=== PATIENT | female | born 1990 | race Asian ===

== ENCOUNTER → 2020-12-12 11:43 | Outpatient (CLI) | payer OTHER, SELFPAY ==
[2020-12-12 12:13] LABS: Add Manual Diff / Slide Review NO; Basophils Absolute Auto 0 /uL (0-100); Basophils Percent Auto 0.5 % (0-2); Eosinophils Absolute Auto 500 /uL (0-450); Hematocrit 37.3 % (36-46); Hemoglobin 12.5 g/dL (12.0-16.0); Lymphocytes Absolute Auto 2800 /uL (1100-4500); Lymphocytes Percent Auto 26.9 % (25-40); Mean Corpuscular HGB Conc 33.4 % (30-36); Mean Corpuscular Hemoglobin 28.9 PG (26-34); Mean Corpuscular Volume 86.3 fL (80-100); Monocytes Absolute Auto 700 /uL (0-900); Monocytes Percent Auto 6.4 % (3-14); Neutrophils Absolute Auto 6500 /uL (1500-7000); Neutrophils Percent Auto 61.2 % (50-75); Platelet Count 281 X10^3/uL (150-400); Red Blood Cell Count 4.32 X10^6/uL (4.0-5.2); Red Cell Distribution Width 12.5 % (11.6-14.8); White Blood Cell Count 10.6 X10^3/uL (4.5-11.0)
[2020-12-12 12:56] LABS: Appearance Urine UA CLEAR; Bilirubin Urine UA NEGATIVE (NEGATIVE); Color Urine UA YELLOW; Glucose Urine UA NEGATIVE (Negative); Ketones Urine UA NEGATIVE (NEGATIVE); Leukocyte Esterase Urine UA NEGATIVE (NEGATIVE); Nitrite Urine UA NEGATIVE (Negative); Occult Blood Urine UA NEGATIVE (Negative); Protein Urine UA NEGATIVE (Negative); Urobilinogen Urine UA 0.2 E.U./dL (0.2)
[2020-12-12 15:55] LABS: Hepatitis B Surface Antigen NEGATIVE s/c (NEGATIVE); Rubella Antibody IgG 32.1 IU/mL (>15)
[2020-12-12 16:10] LABS: HIV 1 & 2 Ab/Ag 4th Gen Combo NEGATIVE (NEGATIVE); Hep C Virus Ab w/Reflex Quant NEGATIVE s/c (NEGATIVE)
[2020-12-13 09:43] LABS: RPR Screen Non Reactive (Non Reactive); Varicella IgG Antibody <135 index (Immune >165)
== END ==
PROVIDERS: Family Provider Specialist; PCP Specialist; Referring Provider Specialist; Visit Provider Specialist
DX: Z34.81 Encounter for supervision of other normal pregnancy, first trimester (principal)
CPT/HCPCS: 36415; 80055; 81003; 86787; 86803; 86850; 86900; 86901; 87086; 87389

== ENCOUNTER → 2021-02-28 12:41 | Outpatient (CLI) | payer OTHER, SELFPAY ==
--- NOTE | 2021-02-28 12:42 | DI.US.S_ITS ---
PROCEDURE: US OB >= 14 WEEKS FETUS INDICATIONS: ANATOMY OUTSIDE/PRIOR DATING DATA: Last menstrual period (LMP): Unknown LMP-based estimated date of delivery (DOMONIQUE): Unknown First dating scan (date and location): 12/12/2020. Estimated date of delivery (DOMONIQUE) from first dating scan: 07/16/2021. TECHNIQUE: Real-time scanning was performed of the fetus, with image documentation and biometric measurements. COMPARISON: [facility], , OB >= 14 WEEKS FETUS, 02/05/2021, 12:02. FINDINGS: General: A single living intrauterine gestation is present. Presentation: Variable. Placenta: Placental position is anterior, without previa. Amniotic fluid index: 18.1 cm, normal range is 5-24 cm. heart rate: 126 beats per minute. Maternal cervical canal: 3.2 cm long. Normal lower limit is 2.5 cm. biometrics: Biparietal diameter: 4.9 cm, 21 weeks 0 days Head circumference: 18.1 cm, 20 weeks 4 days Abdominal circumference: 15.7 cm, 20 weeks 6 days Femur length: 3.2 cm, 20 weeks 0 days Estimated gestational age from initial scan: 20 weeks 2 days Composite gestational age from present scan: 20 weeks 4 days Estimated weight and percentile: 358 g, 58th percentile Measurement variability for biometric dating: +/- 7 days from 14 weeks to 15 weeks 6 days gestation, +/- 10 days from 16 weeks to 21 weeks 6 days gestation, +/- 2 weeks from 22 weeks to 27 weeks 6 days gestation, +/- 3 weeks for 28 weeks gestation or later. weight reference: 4500 g or EFW >90/95% is considered macrosomia or large for gestational age. EFW <10% is small for gestational age. EFW 5% or less is considered intra-uterine growth restriction. Anatomic survey: Neuro: Ventricles are non-dilated at less than 10 mm. Cisterna magna is normal at 3-11 mm. Cerebellum is normal in size and morphology. Nuchal skin fold: Normal at less than 6 mm between 14-21 weeks gestational age. Face: Nose and lips, facial profile are normal. Spine: No evidence for spina bifida. Heart: 4-chambered heart is present, with normal ventricular outflow tracts. Diaphragm: Diaphragm is intact. Stomach: Left-sided stomach is present. Kidneys: No hydronephrosis. Normal is less than 5 mm in 2nd trimester, less than 7 mm in 3rd trimester. Cord: 3-vessel cord has orthotopic insertion. Bladder: Normal in size. Extremities: All 4 extremities identified. IMPRESSION: 1. Walter living intrauterine at 20 weeks 4 days based on today's ultrasound. This is concordant with the prior ultrasound dating. There is expected interval growth. EFW 58th percentile. 2. Normal placenta and amniotic fluid. 3. Normal and complete anatomic survey. Dictated by: Michael Patel M.D. on 02/28/2021 at 15:03 Approved by: Michael Patel M.D. on 02/28/2021 at 15:08
== END ==
PROVIDERS: Family Provider Specialist; Referring Provider Specialist; Visit Provider Specialist
DX: Z34.82 Encounter for supervision of other normal pregnancy, second trimester (principal); Z3A.20 20 weeks gestation of pregnancy
CPT/HCPCS: 76811

== ENCOUNTER → 2021-04-03 09:16 | Outpatient (CLI) | payer OTHER, SELFPAY ==
[2021-04-03 11:03] LABS: Hematocrit 31.8 % (36-46)
[2021-04-03 11:22] LABS: GTT (PREG) 1 Hour PP 50gm Dose 91 mg/dL (76-139)
== END ==
PROVIDERS: Family Provider Specialist; Referring Provider Specialist; Visit Provider Specialist
DX: Z34.82 Encounter for supervision of other normal pregnancy, second trimester (principal)
CPT/HCPCS: 36415; 82950; 85014; 85018

== ENCOUNTER → 2021-07-04 16:01 | Outpatient (CLI) | payer OTHER, SELFPAY ==
[2021-07-06 15:09] LABS: Strep Grp B PCR NEG for Grp B Strep
== END ==
PROVIDERS: Family Provider Specialist; Visit Provider Specialist
DX: Z34.83 Encounter for supervision of other normal pregnancy, third trimester (principal); Z3A.38 38 weeks gestation of pregnancy
CPT/HCPCS: 87653

== ENCOUNTER 2021-07-16 01:18 | Inpatient (IN) | payer OTHER, SELFPAY ==
[2021-07-16 02:30] LABS: Add Manual Diff / Slide Review NO; Basophils Absolute Auto 100 /uL (0-100); Basophils Percent Auto 0.7 % (0-2); Eosinophils Absolute Auto 400 /uL (0-450); Hematocrit 37.8 % (36-46); Hemoglobin 12.7 g/dL (12.0-16.0); Lymphocytes Absolute Auto 2800 /uL (1100-4500); Lymphocytes Percent Auto 21.4 % (25-40); Mean Corpuscular HGB Conc 33.5 % (30-36); Mean Corpuscular Hemoglobin 29.5 PG (26-34); Mean Corpuscular Volume 87.9 fL (80-100); Monocytes Absolute Auto 1200 /uL (0-900); Neutrophils Absolute Auto 8500 /uL (1500-7000); Neutrophils Percent Auto 65.9 % (50-75); Platelet Count 246 X10^3/uL (150-400); Red Cell Distribution Width 13.4 % (11.6-14.8); White Blood Cell Count 12.9 X10^3/uL (4.5-11.0)
[2021-07-16 03:23] VITALS: BP 108/59
[2021-07-16 03:47] LABS: COVID19 -Nasal RAPID Negative (Negative)
[2021-07-16] MEDS: LACTATED RINGERS 1,000 ML 100 ML IV (05:15)
--- NOTE | 2021-07-16 07:33 | P.HPOB_ITS ---
OB HPI Date/Time Date of admission: 07/16/21 Date Patient Seen: 07/16/21 Time Patient Seen: 07:34 History of Present Condition Chief complaint: OBS : 2 Para: 1 Estimated Date of Delivery: 07/14/21 Estimated Gestational Age (weeks): 40 Narrative: Kateryna Meredith is a 30 year old female admitted in active labor History of Present care: good care, initiated at week # (9), number of visits (12) and pounds weight gain (39) Dating criteria: LMP confirmed by 1st trimester US Ultrasounds: normal mid trimester US Obstetrical complications: none Medical complications: none Preadmission Labs Blood type: A (+) positive -: Antibody screen: negative, GBS status: negative, HBsAG: negative, HIV: negative and RPR/VDLR: negative -: Chlamydia screen: not detected and Gonorrhea screen: not detected -: Rubella: immune and Varicella: not immune HCAB: negative 1 hr GTT: 91 Prior (ies) History: 12/30/2016 38 weeks 4 days 7 lb 1 oz female Evaluation Evaluation Baseline heart rate: 130 Variability: Moderate (11-25) monitor accelerations: Present Monitor Decelerations: Late Contraction Frequency (minutes): 2 Uterine Contraction Intensity: Strong/Firm Status: Category ll Dilation (cm): 9 Effacement (%): 100 station: -1 [facility] Medical History (Updated 06/27/21 @ 16:14 by Bird Bell MD) GERD (gastroesophageal reflux disease) (~01/2020) Vaginal delivery (~12/30/16) Surgical History (Updated 12/11/20 @ 12:23 by Michelle Mcclendon RN) [place] teeth extracted Family History (Updated 12/11/20 @ 12:28 by Michelle Mcclendon RN) Mother Breast cancer Father Diabetes mellitus Grandmother Unknown family medical history Grandfather Unknown family medical history Grandmother Unknown family medical history Grandfather Unknown family medical history Social History marital status: number of children: 1 household members: spouse and children lives independently: Yes caregiver/support person: No housing: house pets and animals: Yes (1 puppy: they are aware ) education level: college (2 years: [employer]) 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 ) current occupational exposures/hazards: No special isaiah needs: No seatbelt use: always working smoke detector in home: Yes fire extinguisher in home: No carbon monox detector in home: Yes firearms in home: No do you feel safe at home: Yes Smoking Status: Never smoker second hand exposure: No alcohol intake: never substance use type: does not use during the past year weight has: remained stable well-balanced diet: daily or most days daily servings fruits/ve-4 (2 cups/day. ) caffeine: No Type(s) of exercise: yoga (Online. ) frequency: daily duration: 30-45 minutes/day Meds Home Medications and Allergies Home Medications Medication Instructions Recorded Confirmed Type prenat.vits,joaquin,dsb-gbmo-gvsnc 1 tab PO DAILY 12/11/20 07/11/21 History albuterol sulfate 90 mcg/actuation 2 puff INHALATION Q6H PRN #6.7 g 05/30/21 07/16/21 Rx aerosol inhaler fluticasone propionate 100 1 inh INHALATION BID #60 ea 06/17/21 07/11/21 Rx mcg/actuation blister powder for inhalation (Flovent Diskus) Allergies Allergy/AdvReac Type Severity Reaction Status Date / Time No Known Drug Allergies Allergy Verified 07/11/21 16:03 Review of Systems Review of Systems Narrative: Good movement, no leakage of fluid, no headaches, scotomata, epigastric pain. OB Exam Narrative Exam Narrative: HEENT exam within normal limits. Lungs are clear to auscultation percussion. Heart is regular rate and rhythm no S3-S4 murmurs. Abdomen is gravid. Extremities without edema and nontender Objective Labs Result Diagrams: 07/16/21 02:15 Labs: Laboratory Results - last 24 hr 07/16/21 07/16/21 07/16/21 02:15 02:15 03:47 WBC 12.9 H RBC 4.30 Hgb 12.7 Hct 37.8 MCV 87.9 MCH 29.5 MCHC 33.5 RDW 13.4 Plt Count 246 Neut % (Auto) 65.9 Lymph % (Auto) 21.4 L [place] % (Auto) 9.0 Eos % (Auto) 3.0 Baso % (Auto) 0.7 Neut # (Auto) 8500 H Lymph # (Auto) 2800 [place] # (Auto) 1200 H Eos # (Auto) 400 Baso # (Auto) 100 SARS-CoV-2 (PCR) Negative Blood Type A Positive Antibody Screen Negative Assessment and Plan Assessment and Plan Assessment and Plan narrative: 40 week gestation in active labor. Anticipate vaginal delivery.
--- NOTE | 2021-07-16 09:12 | PM.OBPRVD ---
Labor & Delivery Delivery date: 07/16/21 Intrapartal Events: None Delivery monitor: external FHT and external uterine Route of delivery: L&D Laceration Description: Perineal - 1st Degree Delivery repair: chromic ( 4 0) Estimated blood loss (mL): 200 Anesthesia Type: Local ( lidocaine) Narrative: Patient arrived on Labor and delivery in active labor. She progressed normally. She was having some intermittent late decelerations just prior to becoming complete. She was AROMed for clear fluid after which had significant variables. second-stage of labor was 7 minutes. She delivered spontaneously, over an intact perineum. The viable female infant was placed on maternal abdomen. After the cord stopped pulsating the cord was clamped, cut, and cord bloods obtained. The placenta delivered spontaneously, intact, with 3 vessels. There were no cervical or vaginal tears. A small first-degree perineal tear was repaired with 3-0 chromic suture after injecting with approximately 10 cc of 1% lidocaine. [place] Baby 1: Infant gender: Female Presentation: vertex Position: Right Occiput Anterior Placenta delivery description: Spontaneous Cord Vessel Description: 3 Vessels score (1 min): 9 score (5 min): 9 weight: 9 lb Plan for aftercare: Routine care
[2021-07-16] MEDS: IBUPROFEN 600 MG TABLET PO ×3 (10:15→21:45)
[2021-07-16] MEDS: ACETAMINOPHEN 325 MG TABLET 650 MG PO ×3 (10:15→21:45)
[2021-07-16] MEDS: DERMOPLAST SPRAY 20% 60 ML 1 SPRAY TOP (16:05)
[2021-07-17] MEDS: IBUPROFEN 600 MG TABLET PO ×2 (03:46→11:39)
[2021-07-17] MEDS: ACETAMINOPHEN 325 MG TABLET 650 MG PO ×2 (03:46→11:39)
[2021-07-17 05:25] LABS: Add Manual Diff / Slide Review NO; Basophils Absolute Auto 0 /uL (0-100); Basophils Percent Auto 0.3 % (0-2); Eosinophils Absolute Auto 300 /uL (0-450); Eosinophils Percent Auto 2.5 % (2-4); Hematocrit 32.5 % (36-46); Lymphocytes Absolute Auto 3300 /uL (1100-4500); Lymphocytes Percent Auto 23.4 % (25-40); Mean Corpuscular HGB Conc 33.8 % (30-36); Mean Corpuscular Volume 88.8 fL (80-100); Monocytes Absolute Auto 1400 /uL (0-900); Monocytes Percent Auto 10.1 % (3-14); Neutrophils Absolute Auto 8900 /uL (1500-7000); Neutrophils Percent Auto 63.7 % (50-75); Platelet Count 215 X10^3/uL (150-400); Red Blood Cell Count 3.66 X10^6/uL (4.0-5.2); Red Cell Distribution Width 13.7 % (11.6-14.8); White Blood Cell Count 13.9 X10^3/uL (4.5-11.0)
[2021-07-17] MEDS: OXYCODONE/ACETAMINOPHEN 5/325 TABLET 1 TAB PO (06:46)
--- NOTE | 2021-07-17 08:19 | PM.OBDS.1 ---
Discharge Providers Provider Date of admission: 07/16/21 01:18 Discharge Date: 07/17/21 Primary care physician: Doctor Candelaria MD Consults: 07/17/21 09:06 Consult to Guidance Secretary Routine Comment: Discharge provider: Jacqueline Lisa MD Summary Hospital Course Date Patient Seen: 07/17/21 Time Patient Seen: 08:19 Diagnoses: Vaginal delivery, repair first-degree perineal tear Hospital Course: Patient arrived on Labor and delivery in active labor. She had a spontaneous vaginal delivery of a viable female weighing 9 lb with a repair of a first-degree perineal tear. She is breast-feeding without difficulty. Urinating and ambulating well. She is having significant cramping so to requested and narcotic pain medicine. Peripartum Data Infant Delivery Method: Natural Vaginal Laceration Description: Perineal - 1st Degree Procedures: Spontaneous vaginal delivery, repair of first-degree tear complications: none 1: Gender: Female Disposition of : home Discharge Diagnosis (1) Vaginal delivery: Status: Acute Status at Discharge Cognitive/behavioral status at discharge: oriented Functional status at discharge: independent ambulation Overall status at discharge: patient is progressing back to baseline Time Spent with Patient Time attestation: Total time spent providing and/or coordinating discharge services: Time spent: Less than 30 minutes Objective Labs Result Diagrams: 07/17/21 05:12 Labs: Laboratory Results - last 24 hr 07/17/21 05:12 WBC 13.9 H RBC 3.66 L Hgb 11.0 L Hct 32.5 L MCV 88.8 MCH 30.0 MCHC 33.8 RDW 13.7 Plt Count 215 Neut % (Auto) 63.7 Lymph % (Auto) 23.4 L [place] % (Auto) 10.1 Eos % (Auto) 2.5 Baso % (Auto) 0.3 Neut # (Auto) 8900 H Lymph # (Auto) 3300 [place] # (Auto) 1400 H Eos # (Auto) 300 Baso # (Auto) 0 Exam Vital Signs (past 8 hours): Blood pressure 104/66, pulse 71, temperature 98? Narrative Exam Narrative: Abdomen is soft, nontender. Uterus is firm, at U, nontender. Mild lochia. Extremities without edema and nontender. Blood type is A positive, rubella immune, she received Tdap in the 3rd trimester. Discharge Plan Discharge Plan Patient Disposition: Home Discharge orders & Medications Prescriptions: New oxycodone-acetaminophen 5-325 mg Tablet 1 tab PO Q4HR PRN (Reason: Pain, Moderate (4-6)) Qty: 10 0RF ibuprofen 600 mg Tablet 600 mg PO Q6HR PRN (Reason: Pain, Mild (1-3)) Qty: 20 0RF Continued Flovent Diskus 100 mcg/actuation blister with device 1 inh inhalation BID Qty: 60 0RF Rx Instructions: Has not used medication for a few weels prenat.vits,joaquin,[id number] Tablet 1 tab PO DAILY 0RF albuterol sulfate 90 mcg/actuation HFA aerosol inhaler 2 puff inhalation Q6H PRN (Reason: shortness of breath or wheezing) Qty: 6.7 2RF Rx Instructions: Has not used med for a few weeks. Follow up/Referrals: Jacqueline Lisa MD [Family Provider] - 1 Month Doctor Gaona MD [Primary Care Provider] - Diet/Activity/Treatments Diet: Regular Activity: Nothing in vagina for 6 weeks Skin/Wound/Dressing Care Report to your healthcare provider any signs of infection, such as:: chills, fever and increased pain Discharge Data Primary Care Provider: Doctor Candelaria
== END 2021-07-17 13:00 | disposition home or self-care (01) | DRG 807 ==
PROVIDERS: Admitting Provider Specialist; Family Provider Specialist; Referring Provider Specialist; Visit Provider Specialist
DX: O70.0 First degree perineal laceration during delivery (principal); Z37.0 Single live birth; Z3A.40 40 weeks gestation of pregnancy
CPT/HCPCS: 36415; 59050; 59400; 85025; 86850; 86900; 86901; 87635; C9803; G0379

== ENCOUNTER 2021-09-28 08:12 | Emergency (ER) | payer OTHER, SELFPAY ==
[2021-09-28 08:17] VITALS: BP 125/82; PULSE 72; PULSE 77; RESP 16; TEMP 36.8; O2SAT 100; O2SAT 99; BMI 28.0
--- NOTE | 2021-09-28 08:21 | ED.ABDPAIN ---
HPI - Abdominal Pain General Chief Complaint: Abdominal Pain Stated Complaint: abd pain Time Seen by Provider: 09/28/21 08:21 Source: patient Mode of arrival: Ambulatory Limitations: no limitations History of Present Illness HPI narrative: This is a 31-year-old female with history of asthma, patient states she developed epigastric pain this morning it radiates towards her back about 2:00 a.m. which has been persistent. It has been constant without any waxing or waning, she has had nausea and vomiting this morning. No fevers or chills. Denies any radiation elsewhere. Patient denies any diarrhea constipation, no black or bloody stools. No dysuria, urgency or frequency. No vaginal bleeding or discharge. She has had 1 similar episode about 2 weeks ago. She uses inhaler but no other daily medications. No prior surgeries. No allergies to medications. Denies tobacco, alcohol or illicit. She is accompanied by her today. PCP is in [place]. Related Data Home Medications Medication Instructions Recorded Confirmed prenat.vits,joaquin,rou-hqgo-[id number] 1 tab PO DAILY 12/11/20 07/17/21 Previous Rx's Medication Instructions Recorded albuterol sulfate 90 mcg/actuation 2 puff inhalation Q6H PRN 05/30/21 aerosol inhaler shortness of breath or wheezing #6.7 grams fluticasone propionate 100 1 inh inhalation BID #60 ea 06/17/21 mcg/actuation blister powder for inhalation (Flovent Diskus) ibuprofen 600 mg tablet 600 mg PO Q6HR PRN Pain, Mild 07/17/21 (1-3) #20 tabs medroxyprogesterone 150 mg/mL 150 mg IM [id number] #1 mL 08/14/21 intramuscular suspension meloxicam 7.5 mg tablet 7.5 mg PO BID PRN pain #20 tabs 09/28/21 Allergies Allergy/AdvReac Type Severity Reaction Status Date / Time No Known Drug Allergies Allergy Verified 07/11/21 16:03 Review of Systems Review of Systems ROS Unobtainable: All systems reviewed & are unremarkable except as noted in HPI and below Patient History Medical History GERD (gastroesophageal reflux disease) (~01/2020) Vaginal delivery (~12/30/16) Surgical History Peggs teeth extracted Family History Mother Breast cancer Father Diabetes mellitus Grandmother Unknown family medical history Grandfather Unknown family medical history Grandmother Unknown family medical history Grandfather Unknown family medical history Social History marital status: number of children: 1 household members: spouse and children lives independently: Yes caregiver/support person: No housing: house pets and animals: Yes (1 puppy: they are aware ) education level: college (2 years: [employer]) 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 ) current occupational exposures/hazards: No special isaiah needs: No seatbelt use: always working smoke detector in home: Yes fire extinguisher in home: No carbon monox detector in home: Yes firearms in home: No do you feel safe at home: Yes Smoking Status: Never smoker second hand exposure: No alcohol intake: never substance use type: does not use during the past year weight has: remained stable well-balanced diet: daily or most days daily servings fruits/ve-4 (2 cups/day. ) caffeine: No Type(s) of exercise: yoga (Online. ) frequency: daily duration: 30-45 minutes/day Smoking Status: Never smoker Exam Narrative Exam Narrative: GENERAL: Alert and oriented x three, female in mild distress. HEENT: Head normocephalic, atraumatic, EOMI, pupils reactive, face symmetric, moist mucous membranes NECK: Supple, full range of motion CARDIOVASCULAR: Regular rate and rhythm without murmurs, rubs or gallops. RESPIRATORY: Breath sounds equal bilaterally, no wheezes rales or rhonchi. ABDOMEN: Soft, mild right upper quadrant tenderness, moderate epigastric tenderness. Normoactive bowel sounds all 4 quadrants. No guarding or rebound, rigidity, no mass. Nondistended. No pulsatile mass or bruit. : No CVA tenderness EXTREMITIES: Normal range of motion, no clubbing or edema. Neurovascularly intact NEUROLOGICAL: Cranial nerves II through XII grossly intact. Moving all extremities SKIN: Warm, dry, no petechiae, no rashes or lesions. Initial Vital Signs Initial Vital Signs: Vital Signs Temperature 98.2 F 09/28/21 08:17 Pulse Rate 77 09/28/21 08:17 Respiratory Rate 16 09/28/21 08:17 Blood Pressure 125/82 09/28/21 08:17 Pulse Oximetry 99 09/28/21 08:17 Oxygen Delivery Method 09/28/21 08:17 Course Orders Ordered: Discontinued Medications Acetaminophen (Acetaminophen 325 Mg Tablet) 975 mg PO NOW ONE Stop: 09/28/21 09:53 Last Admin: 09/28/21 10:00 Dose: 975 mg Documented By: JANA Al Hydrox/Mg Hydrox/Simethicone 20 ml/ Lidocaine HCl 15 ml 0 ml PO NOW ONE Stop: 09/28/21 08:29 Last Admin: 09/28/21 08:39 Dose: 35 ml Documented By: EDUAR Ketorolac Tromethamine (Ketorolac 30 Mg/Ml Vial) 30 mg IV NOW ONE Stop: 09/28/21 09:10 Last Admin: 09/28/21 09:16 Dose: 30 mg Documented By: EDUAR Pantoprazole Sodium (Pantoprazole 40 Mg Vial) 40 mg IV NOW ONE Stop: 09/28/21 08:29 Last Admin: 09/28/21 08:39 Dose: 40 mg Documented By: EDUAR Reevaluation(s) Reevaluation #1: Patient pain not improved after GI cocktail. Plan for toradol IV. Time: 09:10 Reevaluation #2: Recheck patient's pain is improved to 2/10 she would like a little distal dose of Tylenol. She would like to return home at this point and defers surgical intervention today. We did discuss return precautions. Contact follow-up with General surgery that she will likely have persistent symptoms and if rapidly worsening to return to the ED Time: 09:50 Consultations Consultation #1: Dr. Doss, general surgery. Reviewed patient has stone in the neck of the gallbladder he is willing to take patient to the OR today if they would like to if her pain is controlled and I prefer follow-up outpatient will defer to patient choice. Time: 09:44 Vital Signs Vital signs: Vital Signs - 8 hr 09/28/21 08:17 09/28/21 08:17 09/28/21 08:17 Temperature 98.2 F Pulse Rate 77 72 Respiratory Rate 16 Blood Pressure 125/82 125/82 Pulse Oximetry 99 100 Oxygen Delivery Method Room Air 09/28/21 08:30 09/28/21 08:39 09/28/21 08:39 Temperature Pulse Rate 67 75 Respiratory Rate Blood Pressure 115/77 Pulse Oximetry 99 100 Oxygen Delivery Method MDM - Abdominal Pain Lab Data Result diagrams: 09/28/21 08:27 09/28/21 08:27 Labs: Lab Results 09/28/21 09/28/21 09/28/21 Range/Units 08:27 08:27 08:52 WBC 7.9 (4.5-11.0) X10^3/uL RBC 4.51 (4.0-5.2) X10^6/uL Hgb 13.0 (12.0-16.0) g/dL Hct 38.3 (36-46) % MCV 85.0 (80-100) fL MCH 28.8 (26-34) PG MCHC 33.9 (30-36) % RDW 11.9 (11.6-14.8) % Plt Count 291 (150-400) X10^3/uL Neut % (Auto) 59.0 (50-75) % Lymph % (Auto) 29.0 (25-40) % [place] % (Auto) 6.3 (3-14) % Eos % (Auto) 5.0 H (2-4) % Baso % (Auto) 0.7 (0-2) % Neut # (Auto) 4600 (9016-6881) /uL Lymph # (Auto) 2300 (7944-0892) /uL [place] # (Auto) 500 (0-900) /uL Eos # (Auto) 400 (0-450) /uL Baso # (Auto) 100 (0-100) /uL Sodium 136 L (137-145) mmol/L Potassium 3.9 (3.4-5.1) mmol/L Chloride 105 (98-107) mmol/L Carbon Dioxide 23 (22-32) mmol/L BUN 12 (7-17) mg/dL Creatinine 0.61 (0.52-1.04) mg/dL Estimated GFR > 60 (>60) mL/min BUN/Creatinine Ratio 19.7 (6-22) Glucose 120 H (70-100) mg/dL Calcium 9.2 (8.4-10.2) mg/dL Total Bilirubin 0.5 (0.2-1.3) mg/dL AST 25 (14-36) IU/L ALT 20 (<35) IU/L Alkaline Phosphatase 63 (38-126) U/L Total Protein 8.8 H (6.3-8.2) g/dL Albumin 4.8 (3.5-5.0) g/dL Globulin 4.0 (1.7-4.1) g/dL Albumin/Globulin Ratio 1.2 (1.0-2.8) Lipase 116 (23-300) U/L Urine RBC None seen (0-5/HPF) Urine WBC 1-5/hpf (0-5/HPF) Ur Squamous Epith Cells 1-5 /hpf (0-5/HPF) Urine Bacteria None seen (None) Urine Mucus 1+ H (Negative) Ur Culture Indicated? Cult not indicated Point of care testing: Point of Care Testing Test Results Negative Urine Dip Bedside Urine Glucose Negative Bedside Urine Bilirubin - Negative Bedside Urine Ketone - Negative Urine Specific [place] 1.030 Bedside Urine Occult Blood - Negative Bedside Urine pH 6.0 Bedside Urine Protein + 30 Bedside Urine Urobilinogen 0.2 Bedside Urine Nitrite - Negative Bedside Urine Leukocytes - Negative Esterase Imaging Data US - abdomen: Radiologist's Impression: prelim report-stone in neck of gallbladder. No thickening or fluid appreciated. [address] [address]RS[place] ReportSigned Patient: Kateryna MeredithR#: [id number]: 1990Acct:[id number]/Sex: 31 / FDate of Service: 09/28/21Loc: EDAccession Number: [id number]? ? Procedure: XR acute abdomen series Ordering Provider: Lainey Avalos D.O. PROCEDURE:? XR ACUTE ABDOMEN SERIES ? INDICATIONS:? epigastric pain ? TECHNIQUE:? One view chest and two views of the abdomen were acquired.? ? COMPARISON:? None. ? FINDINGS:? ? Surgical changes and devices:? None.? ? Chest:? Lungs are clear.? Heart size is normal.? No pleural effusions.? No pneumoperitoneum.? ? Abdomen:? Bowel gas pattern is normal.? No suspicious calcifications.? Visualized solid organ contours appear normal.? ? Bones:? No suspicious bony lesions.? ? ? IMPRESSION:? Unremarkable plain film study. ? A nonobstructive bowel gas pattern is seen. ? ? Dictated by: Remigio Sanchez M.D. on 09/28/2021 at 8:00? ?? Approved by: Remigio Sanchez M.D. on 09/28/2021 at 8:01?? Abdominal x-ray: Radiologist's Impression: Close Chest/Abdomen X-ray (Signed) Remigio Sanchez - 09/28/21 Launch?[address] [address] XRay Report Signed Patient: Kateryna Meredith MR#: [id number] : 1990 Acct:[id number] Age/Sex: 31 / F Date of Service: 09/28/21 Loc: ED Accession Number: [id number] ?? Procedure: XR acute abdomen series Ordering Provider: Lainey Avalos D.O. PROCEDURE:? XR ACUTE ABDOMEN SERIES ? INDICATIONS:? epigastric pain ? TECHNIQUE:? One view chest and two views of the abdomen were acquired.? ? COMPARISON:? None. ? FINDINGS:? ? Surgical changes and devices:? None.? ? Chest:? Lungs are clear.? Heart size is normal.? No pleural effusions.? No pneumoperitoneum.? ? Abdomen:? Bowel gas pattern is normal.? No suspicious calcifications.? Visualized solid organ contours appear normal.? ? Bones:? No suspicious bony lesions.? ? ? IMPRESSION:? Unremarkable plain film study. ? A nonobstructive bowel gas pattern is seen. ? ? Dictated by: Remigio Sanchez M.D. on 09/28/2021 at 8:00 ? ? Approved by: Remigio Sanchez M.D. on 09/28/2021 at 8:01?? ECG Data Attestation: I personally reviewed and interpreted this ECG as follows: Prior ECG tracings: not available for review Interpretation: Reviewed normal sinus rhythm rate of 68 TX 176 QRS 84 QT 425. Patient does not show any acute EKG changes. No priors for comparison MDM Narrative Medical decision making narrative: This is an 31-year-old female with history of asthma with 2 episodes of epigastric pain and some moderate epigastric pain on palpation with right upper quadrant tenderness with nausea and vomiting that came on abruptly overnight. EKG was obtained to evaluate for cardiac cause but suspect intra-abdominal possibly GERD, pancreatitis, gallbladder dysfunction, ulcer. US shows stone in neck of gallbladder. No lab abnormalities, urine and are negative. Patient has a stone in the gallbladder neck. Pain was improved with Toradol. Discussed with General surgery. They are happy to take patient to the OR today if she would like to do so. She defers will to return home and follow-up outpatient with General surgery. Discharge Plan Departure Patient Disposition: Home Clinical Impression: Gallstone Instructions: DI for Gallstones Activity Restrictions/Additional Instructions: You have a gallstone in the neck of your gallbladder causing your discomfort today. Please follow-up with Dr. Doss or one of his partners for consultation and likely removal of her gallbladder. Call Wednesday morning for an appointment. You may take meloxicam 1 tablet every 12 hours and/or Tylenol up to a 1000 mg every 6 hours. Prescription sent to [facility] in [place]. Please return for fevers intractable or worsening abdominal, back or flank pain, persistent vomiting, black or bloody stools, passing out or other new or concerning symptoms. Prescriptions: New meloxicam 7.5 mg tablet 7.5 mg PO BID PRN (Reason: pain) Qty: 20 0RF No Action Flovent Diskus 100 mcg/actuation blister with device 1 inh inhalation BID Qty: 60 0RF Rx Instructions: Has not used medication for a few weels prenat.vits,joaquin,[id number] Tablet 1 tab PO DAILY albuterol sulfate 90 mcg/actuation HFA aerosol inhaler 2 puff inhalation Q6H PRN (Reason: shortness of breath or wheezing) Qty: 6.7 2RF Rx Instructions: Has not used med for a few weeks. medroxyprogesterone 150 mg/mL suspension 150 mg IM [id number] Qty: 1 4RF ibuprofen 600 mg Tablet 600 mg PO Q6HR PRN (Reason: Pain, Mild (1-3)) Qty: 20 0RF Referrals: Dougie Doss MD [Physician] - Miscellaneous,MD Manny [Primary Care Provider] - Visit Report Forms: Patient Portal/API
--- NOTE | 2021-09-28 08:28 | DI.US.S_ITS ---
PROCEDURE: US ABDOMEN LIMITED INDICATIONS: RUQ PAIN TECHNIQUE: Real-time focused scanning was performed of the abdomen, with image documentation. COMPARISON: [facility], CR, XR ACUTE ABDOMEN SERIES, 09/28/2021, 8:22. FINDINGS: The liver is normal in size and demonstrates no focal lesions. A 9 mm gallstone can be seen with lodged within the gallbladder neck. An additional smaller stone is seen. Sludge is also seen. The gallbladder wall is not thickened, measuring 3 mm or less. No specific pericholecystic fluid is seen. The sonographic Urena sign is positive. There is no biliary dilatation, the common bile duct measures 5 mm. No significant pancreatic abnormality is seen on these images. IMPRESSION: Gallstones are seen, including a 9 mm gallstone within the gallbladder neck. There is a positive sonographic Urena sign. These imaging findings are suspicious for cholecystitis. No biliary dilatation. Dictated by: Remigio Sanchez M.D. on 09/28/2021 at 8:37 Approved by: Remigio Sanchez M.D. on 09/28/2021 at 8:39
--- NOTE | 2021-09-28 08:29 | DI.RAD.S_ITS ---
PROCEDURE: XR ACUTE ABDOMEN SERIES INDICATIONS: epigastric pain TECHNIQUE: One view chest and two views of the abdomen were acquired. COMPARISON: None. FINDINGS: Surgical changes and devices: None. Chest: Lungs are clear. Heart size is normal. No pleural effusions. No pneumoperitoneum. Abdomen: Bowel gas pattern is normal. No suspicious calcifications. Visualized solid organ contours appear normal. Bones: No suspicious bony lesions. IMPRESSION: Unremarkable plain film study. A nonobstructive bowel gas pattern is seen. Dictated by: Remigio Sanchez M.D. on 09/28/2021 at 8:00 Approved by: Remigio Sanchez M.D. on 09/28/2021 at 8:01
[2021-09-28 08:30] VITALS: PULSE 67; O2SAT 99
[2021-09-28 08:35] LABS: Add Manual Diff / Slide Review NO; Basophils Absolute Auto 100 /uL (0-100); Basophils Percent Auto 0.7 % (0-2); Eosinophils Absolute Auto 400 /uL (0-450); Hematocrit 38.3 % (36-46); Lymphocytes Absolute Auto 2300 /uL (1100-4500); Mean Corpuscular HGB Conc 33.9 % (30-36); Mean Corpuscular Hemoglobin 28.8 PG (26-34); Monocytes Absolute Auto 500 /uL (0-900); Monocytes Percent Auto 6.3 % (3-14); Neutrophils Absolute Auto 4600 /uL (1500-7000); Platelet Count 291 X10^3/uL (150-400); Red Blood Cell Count 4.51 X10^6/uL (4.0-5.2); Red Cell Distribution Width 11.9 % (11.6-14.8); White Blood Cell Count 7.9 X10^3/uL (4.5-11.0)
[2021-09-28 08:39] VITALS: BP 115/77; PULSE 75; O2SAT 100
[2021-09-28] MEDS: MAG HYDROX/ALUMINUM/SIMETH SUS 20 ML, LIDOCAINE VISCOUS 2% 15 ML PO (08:39)
[2021-09-28] MEDS: PANTOPRAZOLE 40 MG VIAL IV (08:39)
[2021-09-28 08:45] LABS: Alanine Aminotransferase 20 IU/L (<35); Albumin 4.8 g/dL (3.5-5.0); Albumin Globulin Ratio 1.2 (1.0-2.8); Alkaline Phosphatase 63 U/L (38-126); Aspartate Aminotransferase 25 IU/L (14-36); BUN Creatinine Ratio 19.7 (6-22); Bilirubin Total 0.5 mg/dL (0.2-1.3); Blood Urea Nitrogen 12 mg/dL (7-17); Calcium 9.2 mg/dL (8.4-10.2); Carbon Dioxide 23 mmol/L (22-32); Chloride 105 mmol/L (98-107); Estimated Glomerular Filt Rate > 60 mL/min (>60); Glucose 120 mg/dL (70-100); HEMOLYSIS < 15 (0-50); Lipase 116 U/L (23-300); Potassium 3.9 mmol/L (3.4-5.1); Sodium 136 mmol/L (137-145); Total Protein 8.8 g/dL (6.3-8.2)
[2021-09-28 09:15] LABS: Squamous Epithelial Cell Urine 1-5 /HPF (0-5/HPF)
[2021-09-28 09:16] LABS: WBC Urine 1-5/HPF (0-5/HPF)
[2021-09-28] MEDS: KETOROLAC 30 MG/ML VIAL IV (09:16)
[2021-09-28 09:17] LABS: Bacteria Urine None Seen; Culture Indicated Urine Cult Not Indicated; Mucus Urine 1+ (Negative); RBC Urine None Seen (0-5/HPF)
[2021-09-28] MEDS: ACETAMINOPHEN 325 MG TABLET 975 MG PO (10:00)
[2021-09-28 10:01] VITALS: BP 124/75; PULSE 80; RESP 16; O2SAT 99
== END 2021-09-28 10:00 | disposition home or self-care (01) ==
PROVIDERS: Emergency Provider Emergency Medicine; Family Provider Specialist
DX: K80.20 Calculus of gallbladder without cholecystitis without obstruction (principal)
CPT/HCPCS: 36415; 74022; 76705; 80053; 81003; 81015; 81025; 83690; 85025; 93005; 93010; 96374; 96375; 99284; C9113; J1885

== ENCOUNTER → 2021-10-23 15:02 | Outpatient (CLI) | payer OTHER, SELFPAY ==
[2021-10-23 17:46] LABS: COVID19 -Nasal RAPID Negative (Negative)
== END ==
PROVIDERS: Family Provider Specialist; PCP Nurse Practitioner Family; Visit Provider Surgery
DX: Z20.822 Contact with and (suspected) exposure to COVID-19 (principal); Z01.812 Encounter for preprocedural laboratory examination
CPT/HCPCS: 87635; C9803

== ENCOUNTER 2021-10-24 08:46 | Day surgery (SDC) | payer OTHER, SELFPAY ==
[2021-10-21 09:44] VITALS: BMI 27.6
[2021-10-24] VITALS (9 sets, daily range): BP systolic 101–122; BP diastolic 64–80; PULSE 68–89; RESP 14–20; TEMP 36.4–36.8; O2SAT 97–100; BMI 27.6
--- NOTE | 2021-10-24 | PATH_ITS ---
[facility] Accession Number: [id number] . 01 Material submitted: . gallbladder - GALLBLADDER . 01 Diagnosis: Gallbladder, Cholecystectomy: Mild chronic cholecystitis and cholelithiasis. [facility] 10/28/2021 1722 Local . 01 Electronically signed: . Fabiana Toledo MD, Pathologist NPI- [id number] . 01 Gross description: . Received in formalin in a specimen container, labeled with the patient's name and medical record number, gallbladder, is a grossly intact gallbladder with a stapled resection margin that measures 9.7 cm in length and 2.3 cm in diameter. The stapled resection margin measures 0.3 cm and is inked in blue. The serosal surface is pink, smooth, and glistening. The specimen is opened to reveals two calculi within the neck area that measures 0.8 cm and 1.3 cm in greatest dimension. The mucosa is pale pink, velvety, and slightly textured. The wall thickness is 0.2 cm. [employer] sections are submitted in cassette A1. ([id number]) /[facility] 10/28/20214 Local . 01 Pathologist provided ICD-10: K80.50 . 01 CPT . 157924 Specimen Comment: A courtesy copy of this report has been sent to [phone] Performed at: 01 [facility] [address] [place] [id number] MD Pacheco Orlando MD Phone: [phone]
[2021-10-24] MEDS: LACTATED RINGERS 1,000 ML 100 ML IV ×2 (09:36→11:39)
--- NOTE | 2021-10-24 10:15 | PM.PREOP ---
Pre-operative Note Interval Note History & Physical reviewed/Exam performed by Physician: Yes Changes to H&P: No
[2021-10-24] MEDS: CEFAZOLIN 2 GM/20 ML SYRINGE IV (10:33)
[2021-10-24] MEDS: BUPIVACAINE 0.25% (PF) VIAL 30 ML INJ (10:55)
--- NOTE | 2021-10-24 10:57 | SUR.OPER ---
Supine on padded OR bed, head on pillow, safety belt at thigh, left arm padded and tucked at side. Right arm secured on padded arm board <90 degrees abduction. Legs uncrossed. gel pad under bilateral heels. Padded footboard in place. Tape over blanket to secure lower legs.
--- NOTE | 2021-10-24 12:11 | P.OP_ITS ---
Operative Date/Time/Diagnoses Date of procedure: 10/24/21 Time of procedure: 12:11 Pre-op diagnosis: Biliary colic Post-op diagnosis: same Procedure & Clinicians Procedure: Laparoscopic cholecystectomy Same procedure as scheduled: Yes Indications: Symptoms and radiographic findings consistent with biliary colic Surgeon: Darren Arevalo Click Yes if Unassisted: Yes Anesthesia Type: General Operative Notes Findings: Multiple large stones within the gallbladder 1 lodged within the neck. Critical view of safety established. Specimen(s): other (Gallbladder) Estimated Blood Loss (mL): 100 Procedure in detail: The patient was placed supine on the table and bilateral lower extremity compression devices were applied. Anesthesia was induced they were intubated with an endotracheal tube and received 2g of Ancef. A time-out was performed. They were prepped and draped in sterile fashion. An infraumbilical incision was made, the umbilical stalk was elevated and the fascia was sharply incised entering the abdomen atraumatically. A blunt tip 12mm balloon trocar was then inserted, pneumoperitoneum was established and inspection of the abdomen demonstrated no evidence of injury. They were placed head up and right side up and then a 11 mm port was placed high in the epigastrium and two 5mm in the right upper quadrant. The gallbladder was filled with multiple large stones including 1 within the neck of the gallbladder. There was evidence of chronic cholecystitis. The gallbladder was grasped by the fundus and retracted over the liver and retracted laterally by the infundibulum. Using electrocautery the lateral plane between the gallbladder and the liver was opened towards the fundus. The gallbladder was then retracted laterally and the medial plane was developed in the same manner. With the gallbladder mobilized the bottom of the cystic plate was visualized. The hepatocystic triangle was meticulosly skeletonized using hook electrocautery of all fat and fibrous tissue from both the front and the back. Only two structures were then clearly seen entering the gallbladder the cystic duct and the cystic artery. With the critical view of safety fully established the cystic duct was clipped twice proximally and once distally using the 10 mm clip applied under direct visualization and then sharply divided. The cystic artery was divided in the same fashion. The gallbladder was removed from the liver bed using electro cautery. The liver bed was then inspected for hemostasis and this was achieved. The abdomen was irrigated with sterile saline and inspection was made that showed the clips in good position. The specimen was removed using Endo-Catch. The abdomen was de sufflated. The umbilical fascia was closed with 0 Vicryl in a [id number] fashion under direct visualization. Skin incisions were irrigated and closed with 4-0 Monocryl. 30 ml of 0.25% bupivacaine was infiltrated into the subcutaneous tissue of the incisions. The wounds were sealed with Dermabond. Patient emerged from anesthesia was extubated and transferred to recovery in stable condition. The sponge and instrument count at the end of the operation was correct. Complications: none Post-operative Condition: stable Disposition: same day surgery
[2021-10-24] MEDS: OXYCODONE/ACETAMINOPHEN 5/325 TABLET 1 TAB PO ×2 (12:29→13:39)
[2021-10-24] MEDS: ONDANSETRON 4 MG ODT SL (13:25)
--- NOTE | 2021-10-24 14:20 | SUR.PHASEII ---
7272 Dr Person notified of patient nausea with IV already removed. See new order.
== END 2021-10-24 14:03 | disposition home or self-care (01) ==
PROVIDERS: Family Provider Specialist; PCP Nurse Practitioner Family; Referring Provider Surgery; Visit Provider Surgery
PROC: 0FT44ZZ Resection of Gallbladder, Percutaneous Endoscopic Approach (ICD-10-PCS; CPT 47562; principal; 2021-10-24 10:45)
DX: K80.10 Calculus of gallbladder with chronic cholecystitis without obstruction (principal); J45.20 Mild intermittent asthma, uncomplicated
CPT/HCPCS: 47562; 81025; J0690; J1100; J1885; J2250; J2405; J2704; J3010